=== PATIENT | female | born 1945 | race American Indian/Alaskan Native ===

== ENCOUNTER 2024-03-20 11:11 | Inpatient (IN) | payer OTHER ==
[~2024-03-20] VITALS: Ht 157.4 cm; Wt 61.4 kg
[~2024-03-20 11:11] MED LIST: ACETAMINOPHEN325 M2 PO; ARICEPT10 M1 PO; BUSPAR5 MG PO; DEPAKOTE SPRIN125 MG PO; DIVALPROEX SOD125 M1 PO; FLEET ENEMA 13133 ML R; GENTLE LAXATIVE10 MG SC; GUAIFENESIN DM PO; HALOPERIDOL0.5 MG PO; MEMANTINE HCL10 MG PO; MILK OF MA400 MG/5 M PO; OMEPRAZOLE MAGN20 MG PO; PHENERGAN25 MG/1 ML IM; PROPRANOLOL HCL20 MG PO; RISPERIDONE0.5 MG PO; RIVASTIGMINE1 EAC2 T; TRAZODONE50 MG PO; VISTARIL25 MG PO; ZOLOFT50 MG PO
[2024-03-20 11:24] VITALS: BP 141/54
[2024-03-20 11:41] LABS: BASO % 0.5 % (0.0-1.0); EOS # 0.1 10*3/uL (0.0-0.4); EOS % 1.7 % (1.0-4.0); HEMATOCRIT 43.5 % (37.0-47.0); LYMPH # 1.2 10*3/uL (1.3-4.4); LYMPH % 17.7 % (27.0-41.0); MEAN CELL VOLUME 92.6 fl (81.0-99.0); MEAN CORPUSCULAR HGB 28.5 pg (27.0-31.0); MEAN CORPUSCULAR HGB CONC 30.8 g/dl (33.0-37.0); MEAN PLATELET VOLUME 10.4 fl (9.6-12.3); MONO % 14.7 % (3.0-9.0); NEUT # 4.3 10*3/uL (2.3-7.9); NEUT % 65.1 % (47.0-73.0); PLATELET COUNT AUTOMATED 187 10*3/uL (130-400); RED CELL DISTRI WIDTH 14.7 % (0-14.5); WHITE BLOOD COUNT 6.6 10*3/uL (4.8-10.8)
[2024-03-20 12:02] LABS: ALKALINE PHOSPHATASE 109 U/L (46-116); BUN 13 mg/dl (9-23); CHLORIDE 108 mmol/L (98-107); ETHYL ALCOHOL < 3.0 mg/dl (<3); POTASSIUM 4.2 mmol/L (3.4-5.1); SGPT/ALT 10 U/L (5-49); TOTAL PROTEIN 5.9 gm/dL (6.0-8.0)
[2024-03-20] MEDS ORDERED: Ziprasidone Mesylate 20 MG VIAL IM ONE (12:35)
[2024-03-20 13:12] LABS: BILIRUBIN Negative (Negative); BLOOD Negative (Negative); CLARITY Cloudy (Clear); COLOR Yellow (Yellow); GLUCOSE Negative (Negative); KETONE Negative (Negative); LEUKO ESTERASE Negative (Negative); NITRITE Negative (Negative)
[2024-03-20 13:24] LABS: BACTERIA 2+
[2024-03-20 13:28] LABS: URINE AMPHETAMINES Negative (1000ng/ml); URINE BARBITURATES Negative (200ng/ml); URINE BENZODIAZEPINES Negative (200ng/ml); URINE CANNABINOIDS (THC) Negative (50ng/ml); URINE COCAINE Negative (300ng/ml); URINE METHADONE Negative (300ng/ml); URINE OPIATES Negative (300ng/ml); URINE PHENCYCLIDINE Negative (25ng/ml)
[2024-03-20] MEDS ORDERED: ATIVAN1 MG PO (15:07)
[2024-03-20] MEDS ORDERED: GEODON20 MG/1 ML IM (15:10)
[2024-03-20] MEDS ORDERED: [UNRECOGNIZED DRUG - OTHER] IM (15:13)
[2024-03-20] MEDS ORDERED: STERILE WATER IM (15:13)
[2024-03-20] MEDS ORDERED: RISPERDAL0.5 MG PO (15:26)
[2024-03-20] MEDS ORDERED: AUVELITY ER 451 EACH PO (15:31)
[2024-03-20] MEDS ORDERED: BIOFREEZE89 ML T ×2 (15:35→15:37)
[2024-03-20] MEDS ORDERED: ALMACONE-2 LIQ355 ML PO (15:41)
[2024-03-20] MEDS ORDERED: ACETAMINOPHEN 325 MG TAB PO PRN (15:45)
[2024-03-20] MEDS ORDERED: Water, Sterile 10 ML VIAL IM PRN (15:45)
[2024-03-20] MEDS ORDERED: hydrOXYzine pamoate 25 MG CAP PO PRN (15:45)
[2024-03-20] MEDS ORDERED: Ziprasidone Mesylate 20 MG VIAL IM PRN (15:45)
[2024-03-20] MEDS ORDERED: LORazepam 1 MG TAB PO PRN (15:45)
[2024-03-20] MEDS ORDERED: Na Phos, Dibasic/Na Phos, Mo 1 EA BOT R PRN (15:50)
[2024-03-20] MEDS ORDERED: BISACODYL 10 MG SUPP R PRN (15:50)
[2024-03-20] MEDS ORDERED: MG-AL HYDROXIDE/SIMETICONE 30 ML UDC PO PRN (16:00)
[2024-03-20] MEDS ORDERED: Magnesium Hydroxide 30 ML UDC PO PRN (16:00)
[2024-03-20] MEDS ORDERED: BIOFREEZE 4% T PRN (16:05)
[2024-03-20] MEDS ORDERED: BIOFREEZE 4% T SCH (18:00)
[2024-03-20 20:00] VITALS: BP 136/58
[2024-03-20] MEDS ORDERED: Propranolol Hydrochloride 20 MG TAB PO SCH (21:00)
[2024-03-20] MEDS ORDERED: RISPERIDONE 0.25 MG TAB PO SCH (21:00)
[2024-03-20] MEDS ORDERED: Memantine Hydrochloride 10 MG TAB PO SCH (21:00)
[2024-03-20] MEDS ORDERED: [UNRECOGNIZED DRUG - OTHER] PO SCH (21:00)
[2024-03-20 22:15] VITALS: BP 110/60
[2024-03-21 06:19] LABS: BASO % 0.7 % (0.0-1.0); EOS # 0.1 10*3/uL (0.0-0.4); EOS % 2.3 % (1.0-4.0); HEMATOCRIT 42.5 % (37.0-47.0); LYMPH # 1.2 10*3/uL (1.3-4.4); LYMPH % 20.3 % (27.0-41.0); MEAN CELL VOLUME 89.7 fl (81.0-99.0); MEAN CORPUSCULAR HGB 28.3 pg (27.0-31.0); MEAN CORPUSCULAR HGB CONC 31.5 g/dl (33.0-37.0); MEAN PLATELET VOLUME 10.8 fl (9.6-12.3); MONO # 0.9 10*3/uL (0.1-1.0); MONO % 14.8 % (3.0-9.0); NEUT # 3.7 10*3/uL (2.3-7.9); NEUT % 61.7 % (47.0-73.0); PLATELET COUNT AUTOMATED 163 10*3/uL (130-400); RED BLOOD COUNT 4.74 10*6/uL (4.10-5.10); RED CELL DISTRI WIDTH 14.8 % (0-14.5)
[2024-03-21 06:44] LABS: ALKALINE PHOSPHATASE 97 U/L (46-116); BUN 10 mg/dl (9-23); CHLORIDE 109 mmol/L (98-107); CHOLESTEROL 149 mg/dL (<200); LDL CHOLESTEROL 88 mg/dL (9-159); POTASSIUM 3.8 mmol/L (3.4-5.1); SGPT/ALT 8 U/L (5-49); TOTAL PROTEIN 5.5 gm/dL (6.0-8.0); TRIGLYCERIDES 83 mg/dl (<150)
[2024-03-21 07:45] LABS: VITAMIN D, 25-HYDROXY 25.5 ng/mL (30-100)
[2024-03-21 08:00] VITALS: BP 101/69
[2024-03-21] MEDS ORDERED: Cholecalciferol 2,000 UNIT TABLET (50 MCG) PO SCH (09:00)
[2024-03-21] MEDS ORDERED: OMEPRAZOLE 20 MG CAP PO SCH (09:00)
[2024-03-21] MEDS ORDERED: RIVASTIGMINE 13.3 MG/24 HR TDM T SCH (09:00)
[2024-03-21 20:00] VITALS: BP 90/63
[2024-03-22 08:00] VITALS: BP 124/60
[2024-03-22] MEDS ORDERED: VITAMIN E 400 IU CAP PO SCH (09:00)
[2024-03-22 20:00] VITALS: BP 118/73
[2024-03-23 07:42] LABS: BILIRUBIN Negative (Negative); BLOOD Negative (Negative); CLARITY Clear (Clear); COLOR Yellow (Yellow); GLUCOSE Negative (Negative); KETONE Negative (Negative); LEUKO ESTERASE Negative (Negative); NITRITE Negative (Negative); PH 7.5 (4.5-8.0); UROBILINOGEN 0.2 E.U./dl (0.0-1.0)
[2024-03-23 08:43] VITALS: BP 131/64
[2024-03-23] MEDS ORDERED: RISPERIDONE 0.5 MG TAB PO SCH (09:00)
[2024-03-23 10:09] LABS: BACTERIA TRACE; EPITHELIAL CELLS 0-2; RBC 0-2 rbc/hpf (0-2); WBC 0-2 wbc/hpf (0-5)
[2024-03-23 20:00] VITALS: BP 121/60
[2024-03-23] MEDS ORDERED: hydrOXYzine hydrochloride 50 MG/ML VIAL IM PRN ×2 (21:10→22:22)
[2024-03-24 07:39] VITALS: BP 113/90
[2024-03-24] MEDS ORDERED: RISPERIDONE 0.5 MG ODT OGT SCH (09:00)
[2024-03-24 19:14] VITALS: BP 118/52
[2024-03-24] MEDS ORDERED: RISPERIDONE 0.5 MG TAB PO SCH (21:00)
[2024-03-25 08:00] VITALS: BP 123/71
[2024-03-25] MEDS ORDERED: VITAMIN E 400 IU CAP PO SCH (09:00)
[2024-03-25] MEDS ORDERED: LORazepam 2 MG/ML VIAL IM PRN (19:35)
[2024-03-25 20:00] VITALS: BP 126/57
[2024-03-25] MEDS ORDERED: hydrOXYzine 50 MG CAP PO SCH (21:00)
[2024-03-25] MEDS ORDERED: RISPERIDONE 0.5 MG ODT OGT SCH (21:00)
[2024-03-26 07:52] VITALS: BP 134/76
[2024-03-26] MEDS ORDERED: DIVALPROEX SODIUM 125 MG TAB PO SCH (09:00)
[2024-03-26] MEDS ORDERED: MENTHOL 2% T PRN (12:50)
[2024-03-26] MEDS ORDERED: MENTHOL 2% T SCH (18:00)
[2024-03-26 20:00] VITALS: BP 111/70
[2024-03-27 07:28] LABS: HEMATOCRIT 45.3 % (37.0-47.0); MEAN CELL VOLUME 90.8 fl (81.0-99.0); MEAN CORPUSCULAR HGB 28.5 pg (27.0-31.0); MEAN CORPUSCULAR HGB CONC 31.3 g/dl (33.0-37.0); MEAN PLATELET VOLUME 11.1 fl (9.6-12.3); PLATELET COUNT AUTOMATED 132 10*3/uL (130-400); RED BLOOD COUNT 4.99 10*6/uL (4.10-5.10); RED CELL DISTRI WIDTH 14.6 % (0-14.5); WHITE BLOOD COUNT 6.4 10*3/uL (4.8-10.8)
[2024-03-27 07:59] VITALS: BP 92/69
[2024-03-27 08:13] LABS: MANUAL DIFF REFLEX YES
[2024-03-27 08:15] LABS: BASOPHILS 1 % (0-1); PLATELET SUFFICIENCY NORMAL (NORMAL); TOTAL CELLS COUNTED 100 #CELLS
[2024-03-27 08:16] LABS: BURR CELLS FEW
[2024-03-27 09:08] LABS: ALKALINE PHOSPHATASE 110 U/L (46-116); BUN 8 mg/dl (9-23); CHLORIDE 108 mmol/L (98-107); POTASSIUM 4.5 mmol/L (3.4-5.1); SGPT/ALT 10 U/L (5-49); TOTAL PROTEIN 6.5 gm/dL (6.0-8.0)
[2024-03-27] MEDS ORDERED: hydrOXYzine pamoate 25 MG CAP PO SCH (13:00)
[2024-03-27 20:00] VITALS: BP 124/53
[2024-03-27] MEDS ORDERED: PRIMIDONE 50 MG TAB PO SCH (21:00)
[2024-03-28 08:00] VITALS: BP 108/61
[2024-03-28 20:00] VITALS: BP 105/83
[2024-03-29 08:00] VITALS: BP 110/56
[2024-03-29 20:00] VITALS: BP 124/56
[2024-03-30 07:42] VITALS: BP 124/59
[2024-03-30] MEDS ORDERED: RISPERIDONE 100 MG/0.28 ML SUSER.SYR SQ SCH (09:00)
[2024-03-30] MEDS ORDERED: hydrOXYzine pamoate 25 MG CAP PO SCH ×2 (12:00→17:00)
[2024-03-30 20:00] VITALS: BP 102/54
[2024-03-31 08:00] VITALS: BP 102/45
[2024-03-31] MEDS ORDERED: hydrOXYzine pamoate 25 MG CAP PO SCH (14:00)
[2024-04-01 08:00] VITALS: BP 95/63
[2024-04-01 20:57] VITALS: BP 105/51
[2024-04-02 08:27] VITALS: BP 115/48
[2024-04-02] MEDS ORDERED: VITAMIN D350 MCG PO (12:07)
[2024-04-02] MEDS ORDERED: Mysoline50 MG PO (13:47)
[2024-04-02] MEDS ORDERED: HYDROXYZINE PAM25 M1 PO ×2 (13:47)
[2024-04-02] MEDS ORDERED: AUVELITY ER 451 EACH PO (13:47)
== END 2024-04-02 15:20 | DRG 883 ==
LOC: ED 11:11 → 3N 14:07 → EDHOLD 14:07 → 3N 15:59
PROVIDERS: Nurse Practitioner; ADMIT Psychiatry & Neurology Psychiatry; ATTEND Psychiatry & Neurology Psychiatry
PROC: 0HBRXZZ Excision of Toe Nail, External Approach (ICD-10-PCS; principal; 2024-03-21)
PROC: 0HBRXZZ Excision of Toe Nail, External Approach (ICD-10-PCS; 2024-03-21)
PROC: 0HBRXZZ Excision of Toe Nail, External Approach (ICD-10-PCS; 2024-03-21)
PROC: 0HBRXZZ Excision of Toe Nail, External Approach (ICD-10-PCS; 2024-03-21)
PROC: 0HBRXZZ Excision of Toe Nail, External Approach (ICD-10-PCS; 2024-03-21)
PROC: 0HBRXZZ Excision of Toe Nail, External Approach (ICD-10-PCS; 2024-03-21)
PROC: 0HBRXZZ Excision of Toe Nail, External Approach (ICD-10-PCS; 2024-03-21)
PROC: 0HBRXZZ Excision of Toe Nail, External Approach (ICD-10-PCS; 2024-03-21)
PROC: 0HBRXZZ Excision of Toe Nail, External Approach (ICD-10-PCS; 2024-03-21)
PROC: 0HBRXZZ Excision of Toe Nail, External Approach (ICD-10-PCS; 2024-03-21)
PROC: GZHZZZZ Group Psychotherapy (ICD-10-PCS; 2024-03-21)
PROC: GZ51ZZZ Individual Psychotherapy, Behavioral (ICD-10-PCS; 2024-03-21)
DX: F63.81 Intermittent explosive disorder (principal); E44.0 Moderate protein-calorie malnutrition; F33.9 Major depressive disorder, recurrent, unspecified; E87.8 Other disorders of electrolyte and fluid balance, not elsewhere classified; B35.1 Tinea unguium; F03.90 Unspecified dementia, unspecified severity, without behavioral disturbance, psychotic disturbance, mood disturbance, and anxiety; K21.9 Gastro-esophageal reflux disease without esophagitis; I10 Essential (primary) hypertension; G25.0 Essential tremor; Z66 Do not resuscitate; Z87.891 Personal history of nicotine dependence; Z68.24 Body mass index [BMI] 24.0-24.9, adult